=== PATIENT | female | born 1970 | race Caucasian/White ===

== ENCOUNTER → 2023-03-29 15:56 | Outpatient (REF) | payer BC, SELFPAY | LOC: WDC 15:56 | PROVIDERS: ATTENDING PHYSICIAN Obstetrics & Gynecology Gynecology; FAMILY PHYSICIAN Family Medicine | DX: Z12.31 Encounter for screening mammogram for malignant neoplasm of breast (principal) | CPT/HCPCS: 77063; 77067 ==

== ENCOUNTER → 2023-04-16 07:41 | Outpatient (REF) | payer BC, SELFPAY ==
[2023-04-16 08:35] LABS: % Eosinophils 1.6 % (0-6); % Immature Granulocytes 0.6 % (0-0.5); % Lymphocytes 34.8 % (20.5-51.1); % Monocytes 8.3 % (1.7-9.3); % Neutrophils 53.7 % (42.2-75.2); Absolute Basophils 0.1 10^3/uL (0-0.2); Absolute Eosinophils 0.1 10^3/uL (0-0.7); Absolute Lymphocytes 1.8 10^3/uL (1.2-3.4); Absolute Monocytes 0.4 10^3/uL (0.1-0.6); Absolute Neutrophils 2.7 10^3/uL (1.4-6.5); Hematocrit 35.3 % (37.0-47.0); Hemoglobin 12.3 g/dL (12.0-16.0); Mean Corp Hgb Conc. 34.8 g/dL (33.0-37.0); Mean Corpuscular Hgb 28.6 pg (27.0-31.0); Mean Corpuscular Volume 82.1 fL (81.0-99.0); Mean Platelet Volume 9.4 fL (7.4-10.4); Nucleated Red Blood Cells % 0 %; Platelet Count 183 10^3/uL (130-400); Red Cell Dist. Width 12.4 % (11.5-14.5); White Blood Cell Count 5.1 10^3/uL (4.8-10.8)
[2023-04-16 09:11] LABS: ALT (SGPT) 26 U/L (0-35); AST (SGOT) 27 U/L (14-36); Albumin 4.4 g/dl (3.5-5.0); Alkaline Phosphatase 79 U/L (38-126); Direct Bilirubin 0.4 mg/dl (0.0-0.4); HDL Cholesterol 63 mg/dl; Iron 84 ug/dl (37-170); LDL Cholesterol, Calculated 178 mg/dl; Total Bilirubin 0.8 mg/dl (0.2-1.3); Total Cholesterol 264 mg/dl (50-199); Total Protein 7.2 g/dl (6.3-8.2); Triglyceride 115 mg/dl (10-149); Very Low Density Lipoprotein 23 mg/dl (0-30)
[2023-04-16 09:20] LABS: Percent Saturation 35 % (20-50); Total Iron Binding Capacity 239 ug/dl (265-497)
[2023-04-16 09:53] LABS: TSH 3.46 uIU/ml (0.47-4.68)
== END ==
LOC: REG 07:41
PROVIDERS: ATTENDING PHYSICIAN Family Medicine
DX: D64.9 Anemia, unspecified (principal); E78.5 Hyperlipidemia, unspecified; Z13.29 Encounter for screening for other suspected endocrine disorder
CPT/HCPCS: 36415; 80061; 80076; 82728; 83540; 83550; 84443; 85025

== ENCOUNTER → 2023-06-12 08:32 | Outpatient (REF) | payer BC, SELFPAY ==
[2023-06-12 19:42] LABS: Urine Albumin Negative (Neg - Trace); Urine Bilirubin Negative (Negative); Urine Character Clear (Clear); Urine Glucose Negative (Negative); Urine Ketone Negative (Negative); Urine Leukocyte Trace (Negative); Urine Nitrite Negative (Negative); Urine Occult Blood Negative (Negative); Urine Urobilinogen Negative (Neg - 1+)
[2023-06-12 19:44] LABS: Urine Color Yellow
[2023-06-12 19:50] LABS: Urine Bacteria Few (Negative); Urine Red Blood Cell 0-2 /HPF (0-2); Urine White Cell 0-2 /HPF (0-5)
== END ==
LOC: CLAB 08:32
PROVIDERS: ATTENDING PHYSICIAN Obstetrics & Gynecology Gynecology
DX: R35.0 Frequency of micturition (principal)
CPT/HCPCS: 81003; 81015; 87086

== ENCOUNTER → 2023-06-18 13:56 | Outpatient (REF) | payer BC, SELFPAY | LOC: HWEVLT 13:56 | PROVIDERS: ATTENDING PHYSICIAN Radiology Diagnostic Radiology | DX: I83.893 Varicose veins of bilateral lower extremities with other complications (principal) | CPT/HCPCS: 93970 ==

== ENCOUNTER → 2023-07-26 06:53 | Outpatient (REF) | payer BC, SELFPAY ==
[2023-07-26 08:02] LABS: % Basophils 0.9 % (0-2); % Eosinophils 1.6 % (0-6); % Immature Granulocytes 0.4 % (0-0.5); % Lymphocytes 37.6 % (20.5-51.1); % Monocytes 7.7 % (1.7-9.3); % Neutrophils 51.8 % (42.2-75.2); Absolute Basophils 0.1 10^3/uL (0-0.2); Absolute Eosinophils 0.1 10^3/uL (0-0.7); Absolute Lymphocytes 2.1 10^3/uL (1.2-3.4); Absolute Monocytes 0.4 10^3/uL (0.1-0.6); Absolute Neutrophils 2.9 10^3/uL (1.4-6.5); Hematocrit 38.6 % (37.0-47.0); Mean Corp Hgb Conc. 33.7 g/dL (33.0-37.0); Mean Corpuscular Hgb 28.1 pg (27.0-31.0); Mean Corpuscular Volume 83.5 fL (81.0-99.0); Mean Platelet Volume 9.7 fL (7.4-10.4); Nucleated Red Blood Cells % 0 %; Platelet Count 207 10^3/uL (130-400); Red Blood Cell Count 4.62 10^6/uL (4.20-5.40); Red Cell Dist. Width 12.4 % (11.5-14.5); White Blood Cell Count 5.6 10^3/uL (4.8-10.8)
[2023-07-26 08:43] LABS: ALT (SGPT) 18 U/L (0-35); AST (SGOT) 24 U/L (14-36); Albumin 4.7 g/dl (3.5-5.0); Alkaline Phosphatase 65 U/L (38-126); Blood Urea Nitrogen 28 mg/dl (7-17); Calcium 10.2 mg/dl (8.4-10.2); Carbon Dioxide 29 mmol/L (22-30); Chloride 100 mmol/L (98-107); Glucose 86 mg/dl (70-99); HDL Cholesterol 62 mg/dl; LDL Cholesterol, Calculated 169 mg/dl; Potassium 3.7 mmol/L (3.5-5.1); Sodium 140 mmol/L (135-145); Total Bilirubin 1.1 mg/dl (0.2-1.3); Total Cholesterol 247 mg/dl (50-199); Total Protein 7.4 g/dl (6.3-8.2); Triglyceride 81 mg/dl (10-149); Very Low Density Lipoprotein 16 mg/dl (0-30); eGFR > 60.00
[2023-07-26 09:08] LABS: TSH Reflex To Free T4 3.87 uIU/ml (0.47-4.68)
[2023-07-26 09:28] LABS: Vitamin B12 > 1000 pg/ml (239-931)
[2023-07-26 09:47] LABS: Glycohemoglobin (HgbA1c) 5.4 % (4.0-5.6)
== END ==
LOC: REG 06:53
PROVIDERS: ATTENDING PHYSICIAN Physician Assistant
DX: E78.00 Pure hypercholesterolemia, unspecified (principal); Z13.1 Encounter for screening for diabetes mellitus; E88.810 Metabolic syndrome; R53.83 Other fatigue; I10 Essential (primary) hypertension; R20.0 Anesthesia of skin; E66.09 Other obesity due to excess calories
CPT/HCPCS: 36415; 80053; 80061; 82607; 83036; 83735; 84443; 85025

== ENCOUNTER → 2023-11-01 07:48 | Outpatient (REF) | payer BC, SELFPAY ==
[2023-11-01 08:34] LABS: % Basophils 0.7 % (0-2); % Immature Granulocytes 0.3 % (0-0.5); % Lymphocytes 33.6 % (20.5-51.1); % Monocytes 7.7 % (1.7-9.3); % Neutrophils 56.7 % (42.2-75.2); Absolute Eosinophils 0.1 10^3/uL (0-0.7); Absolute Monocytes 0.5 10^3/uL (0.1-0.6); Absolute Neutrophils 3.4 10^3/uL (1.4-6.5); Hematocrit 37.4 % (37.0-47.0); Hemoglobin 12.9 g/dL (12.0-16.0); Mean Corp Hgb Conc. 34.5 g/dL (33.0-37.0); Mean Corpuscular Hgb 28.9 pg (27.0-31.0); Mean Corpuscular Volume 83.7 fL (81.0-99.0); Mean Platelet Volume 9.7 fL (7.4-10.4); Nucleated Red Blood Cells % 0 %; Platelet Count 192 10^3/uL (130-400); Red Blood Cell Count 4.47 10^6/uL (4.20-5.40); Red Cell Dist. Width 12.7 % (11.5-14.5)
[2023-11-01 09:57] LABS: Vitamin B12 967 pg/ml (239-931)
== END ==
LOC: REG 07:48
PROVIDERS: ATTENDING PHYSICIAN Family Medicine
DX: D64.9 Anemia, unspecified (principal)
CPT/HCPCS: 36415; 82607; 82728; 85025

== ENCOUNTER → 2023-11-20 08:01 | Outpatient (REF) | payer BC, SELFPAY | LOC: HWEVLT 08:01 | PROVIDERS: ATTENDING PHYSICIAN Radiology Diagnostic Radiology | DX: I83.891 Varicose veins of right lower extremity with other complications (principal) | CPT/HCPCS: 36478; C1769 ==

== ENCOUNTER → 2023-12-04 15:33 | Outpatient (REF) | payer BC, SELFPAY | LOC: HWEVLT 15:33 | PROVIDERS: ATTENDING PHYSICIAN Radiology Diagnostic Radiology | DX: I83.891 Varicose veins of right lower extremity with other complications (principal) | CPT/HCPCS: 93971 ==

== ENCOUNTER → 2023-12-25 07:10 | Outpatient (REF) | payer BC, SELFPAY | LOC: REG 07:10 | PROVIDERS: ATTENDING PHYSICIAN Internal Medicine Cardiovascular Disease; FAMILY PHYSICIAN Family Medicine | DX: I10 Essential (primary) hypertension (principal); E78.5 Hyperlipidemia, unspecified | CPT/HCPCS: 36415; 80061; 83704 ==

== ENCOUNTER → 2024-03-31 15:29 | Outpatient (REF) | payer BC, SELFPAY | LOC: WDC 15:29 | PROVIDERS: ATTENDING PHYSICIAN Obstetrics & Gynecology Gynecology; FAMILY PHYSICIAN Family Medicine | DX: Z12.31 Encounter for screening mammogram for malignant neoplasm of breast (principal) | CPT/HCPCS: 77063; 77067 ==

== ENCOUNTER → 2024-04-24 07:06 | Outpatient (REF) | payer BC, SELFPAY ==
[2024-04-24 08:32] LABS: ALT (SGPT) 24 U/L (0-35); AST (SGOT) 25 U/L (14-36); Alkaline Phosphatase 68 U/L (38-126); Blood Urea Nitrogen 21 mg/dl (7-17); Calcium 10.4 mg/dl (8.4-10.2); Carbon Dioxide 30 mmol/L (22-30); Chloride 98 mmol/L (98-107); Glucose 92 mg/dl (70-99); HDL Cholesterol 60 mg/dl; LDL Cholesterol, Calculated 170 mg/dl; Potassium 3.6 mmol/L (3.5-5.1); Sodium 139 mmol/L (135-145); Total Bilirubin 1.5 mg/dl (0.2-1.3); Total Cholesterol 253 mg/dl (50-199); Total Protein 7.5 g/dl (6.3-8.2); Triglyceride 116 mg/dl (10-149); Very Low Density Lipoprotein 23 mg/dl (0-30); eGFR > 60.00
[2024-04-24 09:06] LABS: TSH 3.52 uIU/ml (0.47-4.68)
== END ==
LOC: REG 07:06
PROVIDERS: ATTENDING PHYSICIAN Family Medicine
DX: E87.20 Acidosis, unspecified (principal)
CPT/HCPCS: 36415; 80053; 80061; 84443

== ENCOUNTER → 2024-09-15 14:39 | Outpatient (REF) | payer BC, SELFPAY | LOC: CPAP 14:39 | PROVIDERS: ATTENDING PHYSICIAN Obstetrics & Gynecology Gynecology | DX: Z01.419 Encounter for gynecological examination (general) (routine) without abnormal findings (principal) | CPT/HCPCS: 87624 ==